=== PATIENT | female | born 1965 | race Caucasian/White ===

== ENCOUNTER 2017-05-24 07:51 | Outpatient (CLI) | payer OTHER | END 2017-05-24 07:52 | disposition home or self-care (01) | LOC: BICMRI 07:51 | PROVIDERS: ATTEND Specialist | DX: M54.6 Pain in thoracic spine (principal) | CPT/HCPCS: 72146 ==

== ENCOUNTER 2019-01-31 07:03 | Day surgery (SDC) | payer OTHER ==
[2019-01-30 10:42] VITALS: BMI 30.2
--- NOTE | 2019-01-31 08:30 | HP ---
HISTORY OF PRESENT ILLNESS: This is a 53-year-old female who has been having severe abdominal pain on and off.The pain is across the lower abdomen_. She has had constipation, which has been getting worse. The patient comes in for colonoscopy because of abdominal pain and constipation.. _ SOCIAL HISTORY: The patient is , non smoker, no alcohol intake. MEDICAL ILLNESS: 1. ADHD. 2. Bipolar disorder. . PHYSICAL EXAMINATION: GENERAL: Appears comfortable. VITAL SIGNS: Pulse is 72, blood pressure 120/76. NECK: Supple. CARDIOVASCULAR: 1st and 2nd heart sounds. LUNGS: Clear to auscultation. ABDOMEN: Nondistended. Abdomen tender over the left lower quadrant_ ASSESSMENT AND PLAN: This is a 53-year-old female who is undergoing colonoscopy because of abdominal pain and constipation.. Job ID: [id number] [facility]
--- NOTE | 2019-01-31 10:24 | OP ---
DATE OF PROCEDURE: 01/31/2019 PREOPERATIVE DIAGNOSIS: A 53-year-old female with abdominal pain, which is persistent over the left lower quadrant. The patient is undergoing colonoscopy. POSTOPERATIVE DIAGNOSES: 1. No pathology seen in the left colon to explain the abdominal pain. 2. Small polyp versus hyperplastic mucosa of ascending colon, biopsied. PROCEDURE PERFORMED: Colonoscopy with biopsy. DESCRIPTION OF PROCEDURE: The patient was placed on her left lateral position and was given sedation by Anesthesia Department. A rectal exam was done. The scope was advanced into the rectum. No lesions felt on rectal exam. A Pentax video colonoscope was introduced into the rectum and advanced down to the cecum. The prep was good. The mucosa appears normal throughout the colon with normal vascular pattern. The appendiceal orifice, ileocecal wall, and cecum, no pathology seen. A small sessile polyp was seen over the ascending colon. This could very well be hyperplastic mucosa. This was biopsied. The hepatic flexure, transverse colon, splenic flexure, descending colon, sigmoid colon, no pathology seen. The rectum showed no pathology except small hemorrhoids. DISCHARGE PLAN: This is a 53-year-old female, came for EGD and colonoscopy because of abdominal pain, which has been persistent over the last several months. The pain is over the left lower quadrant. The colonoscopy showed no pathology to explain abdominal pain. DISCHARGE RECOMMENDATIONS: 1. The patient advised to call me if she develops abdominal pain, hematochezia. 2. Consider a pelvic sonogram because of the chronic lower abdominal pain. Job ID: [id number]
== END 2019-01-31 10:24 | disposition home or self-care (01) ==
LOC: SDC 07:03
PROVIDERS: ATTEND Internal Medicine Gastroenterology
PROC: 0DBK8ZX Excision of Ascending Colon, Via Natural or Artificial Opening Endoscopic, Diagnostic (ICD-10-PCS; principal; 2019-01-31)
DX: K63.89 Other specified diseases of intestine (principal); R10.32 Left lower quadrant pain; F31.9 Bipolar disorder, unspecified; F90.9 Attention-deficit hyperactivity disorder, unspecified type
CPT/HCPCS: 88305

== ENCOUNTER 2019-12-01 11:00 | Outpatient (CLI) | payer OTHER ==
--- NOTE | 2019-12-01 11:44 | MMO ---
Bilateral MAMMO Bilat Screen [facility]. CLINICAL HISTORY: Patient is 54 years old and is seen for screening. The patient has no family history of breast cancer. The patient has no personal history of cancer. VIEWS: The views performed were: bilateral craniocaudal with tomosynthesis and bilateral mediolateral oblique with tomosynthesis. This study has been interpreted with the assistance of computer-aided detection. MAMMOGRAM FINDINGS: There are scattered fibroglandular densities. There are benign appearing calcifications seen in both breasts. There are no suspicious masses, suspicious calcifications, or areas of architectural distortion. IMPRESSION: THERE IS NO MAMMOGRAPHIC EVIDENCE OF MALIGNANCY. A ROUTINE FOLLOW-UP MAMMOGRAM IN 1 YEAR IS RECOMMENDED. THE RESULTS OF THIS EXAM WERE SENT TO THE PATIENT. ACR BI-RADS Category 2 - Benign finding MAMMOGRAPHY NOTE: 1. A negative mammogram report should not delay a biopsy if a dominant of clinically suspicious mass is present. 2. Approximately 10% to 15% of breast cancers are not detected by mammography. 3. Adenosis and dense breasts may obscure an underlying neoplasm. Reported by: ZANDER HENDERSON MD Electonically Signed: [id number]
== END 2019-12-01 11:01 | disposition home or self-care (01) ==
LOC: BICMAMMO 11:00
PROVIDERS: ATTEND Family Medicine
DX: Z12.31 Encounter for screening mammogram for malignant neoplasm of breast (principal)
CPT/HCPCS: 77063; 77067

== ENCOUNTER 2020-07-02 17:51 | Emergency (ER) | payer OTHER ==
--- NOTE | 2020-07-02 18:10 | RAD ---
XR Chest 1 View Portable HISTORY: Chest pain COMPARISON: 04/20/2011 FINDINGS: The heart size is normal. The lungs are well expanded without focal areas of consolidation, pneumothorax or pleural effusions. IMPRESSION: No radiographic evidence of acute cardiopulmonary process.
[2020-07-02 18:28] LABS: #Basophils 0.1 thou/uL (0.0-0.2); #Eosinphils 0.2 thou/uL (0.0-0.7); #Monocytes 0.5 thou/uL (0.11-0.59); #Neutrophils 2.7 thou/uL (1.40-6.50); %Basophils 1.1 % (0.0-1.0); %Lymphocytes 46.5 % (21.0-51.0); %Neutrophils 41.4 % (42.0-75.0); Hemoglobin 13.3 g/dL (12.0-16.0); Mean Corpuscular HGB CONC 33.5 g/dL (32.0-36.0); Mean Corpuscular Hemoglobin 32.2 pg (27.0-31.0); Mean Corpuscular Volume 95.9 fL (78.0-98.0); Platelet Count 314 thou/uL (130-400); RBC Distribution Width 12.1 % (11.5-14.5); Red Blood Cell (RBC) Count 4.13 mill/uL (4.20-5.40); White Blood Cell (WBC) Count 6.5 thou/uL (4.8-10.8)
[2020-07-02 19:00] LABS: ALT (SGPT) 72 U/L (8-55); AST (SGOT) 190 U/L (5-34); Albumin 4.3 g/dL (3.5-5.0); Alkaline Phosphatase 122 U/L (40-110); Anion Gap 17 mmol/L (10-20); BUN (Urea Nitrogen) 11 mg/dL (9.8-20.1); Bilirubin, Total 0.4 mg/dL (0.2-1.2); Calc. Creatinine Clearance 0 mL/min (70-130); Carbon Dioxide 22 mmol/L (22-29); Chloride 106 mmol/L (98-107); Globulin 2.5 g/dL (2.4-3.5); Glucose 87 mg/dL (70-105); Lipase 53 U/L (8-78); Potassium 3.9 mmol/L (3.5-5.1); Protein, Total 6.8 g/dL (6.0-8.3); Sodium 141 mmol/L (136-145)
[2020-07-02 19:27] LABS: CK (CPK) 8752 U/L (29-168)
== END 2020-07-02 19:24 | disposition left against medical advice (07) ==
LOC: ERS 17:51
DX: Z53.21 Procedure and treatment not carried out due to patient leaving prior to being seen by health care provider (principal)
CPT/HCPCS: 36415; 71045; 80053; 82550; 83690; 84484; 85025; 93005